=== PATIENT | male | born 1970 | race Caucasian/White ===

== ENCOUNTER 2018-02-12 07:53 | Emergency (ER) | payer OTHER ==
[2018-02-12] MEDS ORDERED: ONDANSETRON 4 MG/2 ML VIAL IVP STA (08:15)
[2018-02-12] MEDS ORDERED: SODIUM CHLORIDE 0.9% 1,000 ML IV STA (08:15)
[2018-02-12] MEDS ORDERED: DICYCLOMINE 20 MG TAB PO STA ×2 (08:15→09:05)
--- NOTE | 2018-02-12 08:17 | ED ---
General Adult HPI - General Chief complaint: Nausea/Vomiting/Diarrhea Stated complaint: diarrhea Time Seen by Provider: 02/12/18 08:04 Source: patient Mode of arrival: ambulatory Limitations: no limitations - History of Present Illness Initial comments: Patient 47-year-old male presenting to the emergency room today with a chief complaint of diarrhea over the last 4 days. 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 States he had approximately 10 episodes diarrhea yesterday. Denies any signs of blood. He does admit to some abdominal cramping that comes and goes. States been nauseous at times but no vomiting. Patient states she's been trying to keep up the fluids. He states it began feeling dizzy and his reason for coming here to the emergency room. He denies any other complaints or symptoms. Patient denies any recent fever, chills, shortness of breath, chest pain, back pain, vomiting, numbness or tingling, dysuria or hematuria, headaches or visual changes, or any other complaints. - Related Data Previous Rx's Medication Instructions Recorded Dicyclomine [Bentyl] 20 mg PO QID #20 tablet 02/12/18 Ondansetron Odt [Zofran ODT] 4 mg PO Q8HR PRN #20 tab 02/12/18 Allergies Allergy/AdvReac Type Severity Reaction Status Date / Time No Known Allergies Allergy Verified 02/12/18 08:00 Review of Systems ROS Statement: Those systems with pertinent positive or pertinent negative responses have been documented in the HPI. ROS Other: All systems not noted in ROS Statement are negative. Past Medical History Past Medical History: Asthma History of Any Multi-Drug Resistant Organisms: None Reported Past Surgical History: No Surgical Hx Reported Past Psychological History: No Psychological Hx Reported Smoking Status: Never smoker Past Alcohol Use History: Occasional Past Drug Use History: None Reported General Exam - General Exam Comments Initial Comments: General: The patient is awake and alert, in no distress, and does not appear acutely ill. Eye: There is normal conjunctiva bilaterally. No signs of icterus. Ears, nose, mouth and throat: There are moist mucous membranes and no oral lesions. Neck: The neck is supple, there is no tenderness or JVD. Cardiovascular: There is a regular rate and rhythm. No murmur, rub or gallop is appreciated. Respiratory: Lungs are clear to auscultation, respirations are non-labored, breath sounds are equal. No wheezes, stridor, rales, or rhonchi. Gastrointestinal: Soft, non-distended, non-tender abdomen without masses or organomegaly noted. There is no rebound or guarding present. No CVA tenderness. Musculoskeletal: Normal ROM, no tenderness.. Neurological: A&O x 3. CN II-XII intact, There are no obvious motor or sensory deficits. Coordination appears grossly intact. Speech is normal. Skin: Skin is warm and dry and no rashes or lesions are noted. Psychiatric: Cooperative, appropriate mood & affect, normal judgment. Limitations: no limitations Course Vital Signs 02/12/18 07:57 Temperature 98.2 F Pulse Rate 92 Respiratory 22 Rate Blood Pressure 138/79 O2 Sat by Pulse 98 Oximetry Medical Decision Making - Medical Decision Making Patient's labs been reviewed. Patient's blood sugar greater than 200. Patient' s urinalysis shows no ketones. Patient feeling better. Was discussed about CAT scan. Patient has declined. C. diff negative. Has had diarrhea last 3 days. Patient examined soft nontender. Patient will be discharged on continued on Bentyl. These. Follow family physician have repeat blood sugar. Advised return if symptoms increase worsen or for any other concerns. - Lab Data Result diagrams: 02/12/18 08:46 02/12/18 08:46 Lab Results 02/12/18 02/12/18 02/12/18 Range/Units 08:46 08:46 08:46 WBC 7.9 (3.8-10.6) k/uL RBC 4.64 (4.30-5.90) m/uL Hgb 14.1 (13.0-17.5) gm/dL Hct 40.0 (39.0-53.0) % MCV 86.2 (80.0-100.0) fL MCH 30.5 (25.0-35.0) pg MCHC 35.4 (31.0-37.0) g/dL RDW 12.6 (11.5-15.5) % Plt Count 141 L (150-450) k/uL Neutrophils % 83 % Lymphocytes % 12 % Monocytes % 5 % Eosinophils % 0 % Basophils % 0 % Neutrophils # 6.5 (1.3-7.7) k/uL Lymphocytes # 0.9 L (1.0-4.8) k/uL Monocytes # 0.4 (0-1.0) k/uL Eosinophils # 0.0 (0-0.7) k/uL Basophils # 0.0 (0-0.2) k/uL Sodium 133 L (137-145) mmol/L Potassium 3.7 (3.5-5.1) mmol/L Chloride 102 (98-107) mmol/L Carbon Dioxide 19 L (22-30) mmol/L Anion Gap 12 mmol/L BUN 19 (9-20) mg/dL Creatinine 1.15 (0.66-1.25) mg/dL Est GFR (CKD-EPI)AfAm 88 (>60 ml/min/1.73 sqM) Est GFR (CKD-EPI)NonAf 76 (>60 ml/min/1.73 sqM) Glucose 208 H (74-99) mg/dL Calcium 8.9 (8.4-10.2) mg/dL Total Bilirubin 1.1 (0.2-1.3) mg/dL AST 17 (17-59) U/L ALT 28 (21-72) U/L Alkaline Phosphatase 53 (38-126) U/L Troponin I <0.012 (0.000-0.034) ng/mL Total Protein 6.3 (6.3-8.2) g/dL Albumin 3.5 (3.5-5.0) g/dL Amylase 58 (30-110) U/L Lipase 144 (23-300) U/L Urine Color Urine Appearance (Clear) Urine pH (5.0-8.0) Ur Specific [place] (1.001-1.035) Urine Protein (Negative) Urine Glucose (UA) (Negative) Urine Ketones (Negative) Urine Blood (Negative) Urine Nitrite (Negative) Urine Bilirubin (Negative) Urine Urobilinogen (<2.0) mg/dL Ur Leukocyte Esterase (Negative) Urine RBC (0-5) /hpf Urine WBC (0-5) /hpf Ur Squamous Epith Cells (0-4) /hpf Urine Bacteria (None) /hpf Hyaline Casts (0-2) /lpf Urine Mucus (None) /hpf C. difficile (EIA) Intrp (Negative) 02/12/18 02/12/18 Range/Units 08:53 08:53 WBC (3.8-10.6) k/uL RBC (4.30-5.90) m/uL Hgb (13.0-17.5) gm/dL Hct (39.0-53.0) % MCV (80.0-100.0) fL MCH (25.0-35.0) pg MCHC (31.0-37.0) g/dL RDW (11.5-15.5) % Plt Count (150-450) k/uL Neutrophils % % Lymphocytes % % Monocytes % % Eosinophils % % Basophils % % Neutrophils # (1.3-7.7) k/uL Lymphocytes # (1.0-4.8) k/uL Monocytes # (0-1.0) k/uL Eosinophils # (0-0.7) k/uL Basophils # (0-0.2) k/uL Sodium (137-145) mmol/L Potassium (3.5-5.1) mmol/L Chloride (98-107) mmol/L Carbon Dioxide (22-30) mmol/L Anion Gap mmol/L BUN (9-20) mg/dL Creatinine (0.66-1.25) mg/dL Est GFR (CKD-EPI)AfAm (>60 ml/min/1.73 sqM) Est GFR (CKD-EPI)NonAf (>60 ml/min/1.73 sqM) Glucose (74-99) mg/dL Calcium (8.4-10.2) mg/dL Total Bilirubin (0.2-1.3) mg/dL AST (17-59) U/L ALT (21-72) U/L Alkaline Phosphatase (38-126) U/L Troponin I (0.000-0.034) ng/mL Total Protein (6.3-8.2) g/dL Albumin (3.5-5.0) g/dL Amylase (30-110) U/L Lipase (23-300) U/L Urine Color Yellow Urine Appearance Cloudy (Clear) Urine pH 5.5 (5.0-8.0) Ur Specific [place] 1.023 (1.001-1.035) Urine Protein 1+ H (Negative) Urine Glucose (UA) Trace H (Negative) Urine Ketones Negative (Negative) Urine Blood Trace H (Negative) Urine Nitrite Negative (Negative) Urine Bilirubin Negative (Negative) Urine Urobilinogen <2.0 (<2.0) mg/dL Ur Leukocyte Esterase Negative (Negative) Urine RBC 1 (0-5) /hpf Urine WBC 2 (0-5) /hpf Ur Squamous Epith Cells 1 (0-4) /hpf Urine Bacteria Occasional H (None) /hpf Hyaline Casts 3 H (0-2) /lpf Urine Mucus Many H (None) /hpf C. difficile (EIA) Intrp Negative (Negative) Disposition Clinical Impression: Abdominal pain, Acute diarrhea, Elevated blood sugar Disposition: HOME SELF-CARE Condition: Good Instructions: Acute Diarrhea (ED) Additional Instructions: Please use medication as discussed. Please follow-up with family doctor in the next 2 days of symptoms have not improved. Please return to emergency room if the symptoms increase or worsen or for any other concerns. Prescriptions: Dicyclomine [Bentyl] 20 mg PO QID #20 tablet Ondansetron Odt [Zofran ODT] 4 mg PO Q8HR PRN #20 tab PRN Reason: Nausea Is patient prescribed a controlled substance at d/c from ED?: No Referrals: None,Stated [Primary Care Provider] - 1-2 days Stanton Pina DO [STAFF PHYSICIAN] - 1-2 days Time of Disposition: 10:58
[2018-02-12 09:54] LABS: Appearance,Urine Cloudy (Clear); Bacteria,Urine Occasional /hpf; Bilirubin,Urine Negative (Negative); Blood,Urine Trace (Negative); Color,Urine Yellow; Glucose,Urine (UA) Trace (Negative); Hyaline Casts,Urine 3 /lpf (0-2); Ketones,Urine Negative (Negative); Leukocyte Esterase,Urine Negative (Negative); Mucus,Urine Many /hpf; Nitrite,Urine Negative (Negative); PH, Urine 5.5 (5.0-8.0); Protein,Urine 1+ (Negative); RBC,Urine 1 /hpf (0-5); Specific Gravity,Urine 1.023 (1.001-1.035); Squamous Epithelial Cell,Urine 1 /hpf (0-4); Urobilinogen,Urine <2.0 mg/dL (<2.0)
[2018-02-12 10:00] LABS: Albumin 3.5 g/dL (3.5-5.0); Calcium 8.9 mg/dL (8.4-10.2); Potassium 3.7 mmol/L (3.5-5.1); Total Bilirubin 1.1 mg/dL (0.2-1.3); Total Protein 6.3 g/dL (6.3-8.2)
[2018-02-12 10:10] LABS: Basophils % (A) 0 %; Eosinophils % (A) 0 %; HGB 14.1 gm/dL (13.0-17.5); Lymphocytes # (A) 0.9 k/uL (1.0-4.8); Lymphocytes % (A) 12 %; MCH 30.5 pg (25.0-35.0); MCHC 35.4 g/dL (31.0-37.0); MCV 86.2 fL (80.0-100.0); Monocytes # (A) 0.4 k/uL (0-1.0); Monocytes % (A) 5 %; Neutrophils # (A) 6.5 k/uL (1.3-7.7); Neutrophils % (A) 83 %; Platelet Count 141 k/uL (150-450); RBC 4.64 m/uL (4.30-5.90); RDW 12.6 % (11.5-15.5); WBC 7.9 k/uL (3.8-10.6)
[2018-02-12 11:10] VITALS: BP 116/66; PULSE 82; RESP 17; TEMP 99.1
== END 2018-02-12 11:10 | disposition home or self-care (01) ==
LOC: EC 07:53
DX: R73.9 Hyperglycemia, unspecified (principal); R19.7 Diarrhea, unspecified; R10.9 Unspecified abdominal pain; R42 Dizziness and giddiness; R11.0 Nausea
CPT/HCPCS: 36415; 93005; 80053; 82150; 83690; 84484; 85025; 81001; 87324; 87045; 87046; 99284; 96374; 96361; J2405